=== PATIENT | female | born 1955 | race Caucasian/White ===

== ENCOUNTER → 2016-08-12 | Outpatient (CLI) | payer OTHER | LOC: RAD 08:54 | DX: Z12.31 Encounter for screening mammogram for malignant neoplasm of breast (principal) ==

== ENCOUNTER → 2017-08-16 | Outpatient (CLI) | payer OTHER ==
[~2017-08-16] MED LIST: MULTIVITAMINS1 EAC7 PO; TRAMADOL 50 MG50 MG PO
== END ==
LOC: RAD 01:04
DX: Z12.31 Encounter for screening mammogram for malignant neoplasm of breast (principal)

== ENCOUNTER 2018-01-14 05:30 | Observation (INO) | payer OTHER ==
[2018-01-14] VITALS (8 sets, daily range): BP systolic 88–128; BP diastolic 36–55
[~2018-01-14] VITALS: Ht 167.6 cm; Wt 65.3 kg
--- NOTE | ~2018-01-14 | PATH ---
[facility] [address] PATHOLOGY RPT PROCEDURE Name: SOUMYA STRATTON Room #: 421-P [facility] Juan Carlos VazquezRSantana#: [id number] Admission: 01/14/18 Date of : 55 Discharge: 01/15/18 Report #: [id number] Path Case #: [id number] [facility] Accession Number: [id number] . 01 Material submitted: . LUMBAR 5 DISC . 01 Clinical history: . L4, S1 lateral disc herniation, foraminal stenosis . 02 Diagnosis: "Lumbar 5 disc", discectomy: - Intervertebral disc material with mild reactive and degenerative changes. (CLW:soraya; 01/17/2018) QMS/01/17/2018 . 02 Electronically signed: . Meena Gregory MD, Pathologist NPI- [id number] . 01 Gross description: . The specimen is received in formalin, labeled "McCunniff, Soumya, lumbar 5 disc" and consists of multiple fragments of see-pink soft tissue and calcified tissue measuring 3.6 x 1.5 x 0.3 cm in aggregate. A software sales representative portion is submitted in A1 following decalcification. (SDY; 01/14/2018) SYU/SYU . 02 Pathologist provided ICD-10: M51.36 . 02 CPT . 035912, [id number] Performed at: [address], [place] [id number] MD Jovan Simmons MD Phone: [phone] Performed at: [address] [id number] MD Fabby Cortes MD Phone: [phone]
--- NOTE | ~2018-01-14 | O ---
[facility] [place] [address] OPERATIVE REPORT Name: SOUMYA STRATTON Room #: 421-P [facility] Jesse#: [id number] Admission: 01/14/18 Attend Phys: Usman Graves MD Discharge: 01/15/18 Date of : 55 Report #: [id number] THIS REPORT FOR: //name// CC: Usman Crockett DATE OF SERVICE: 01/14/2018 PREOPERATIVE DIAGNOSIS: Herniated lumbar disk and foraminal stenosis with radiculopathy, L5-S1 level, left. POSTOPERATIVE DIAGNOSIS: Herniated lumbar disk and foraminal stenosis with radiculopathy, L5-S1 level, left. PROCEDURE: Decompressive laminectomy, foraminotomy, and diskectomy, L5-S1, left. SURGEON: Usman Graves MD INDICATIONS: This slender, fit, active 62-year-old female complains of chronic persistent pain in the left low back, extending to the left buttock and left leg. Clinical exam and MRI study reveals some multilevel degenerative disk changes. There is mild disk bulging at L3-L4 and L4-L5, but these are more central and toward the right side. Her symptoms are almost exclusively on the left and seemed to correspond more with a far lateral disk herniation at L5-S1 which causes some foraminal narrowing and nerve root impingement. She has tried conservative measures without benefit. We have discussed that she does have multilevel degenerative disk change and therefore may have some ongoing back symptoms. I am hopeful that her radicular symptoms will be improved with decompression of this localized foraminal stenosis. DESCRIPTION OF PROCEDURE: The patient was taken to the operating room where she was placed under general anesthesia. Prophylactic intravenous antibiotics were administered. She was turned to the prone position. The low back was meticulously prepped and draped. C-arm was used to localize the appropriate level and the L5-S1 level was marked. A skin incision was made just to the left of midline, overlying the L5-S1 space. The incision was carried through fascia and the paraspinal muscles were retracted laterally, exposing the lamina of L5 and S1. A marker was placed and C-arm was used to confirm that I was at the appropriate level. A laminotomy was performed in the inferior aspect of L5 and the superior aspect of S1. The canal did seem moderately tight, making dissection somewhat difficult. There was some significant hypertrophy of the facet joint with a moderate amount of spurring. There also seemed to be a small synovial cyst, which was punctured and removed. This combined to result in moderate canal and foraminal narrowing at that level. The facet was undercut out laterally to improve the lateral gutter. The dissection was extended [address] [address] OPERATIVE REPORT Name: SOUMYA STRATTON Room #: 421-P [facility] Juan Carlos Molina#: [id number] Admission: 01/14/18 Attend Phys: Usman Graves MD Discharge: 01/15/18 Date of : 55 Report #: [id number] distally and the S1 nerve root was noted to be freed up nicely as it passed distally. The principal area of narrowing seemed to be related to the moderately far lateral disk herniation which caused significant foraminal narrowing and probably impingement on the exiting L5 nerve root above. The disk was entered with a small pituitary and a good deal of loose degenerative disk debris was removed. This seemed to decompress the mid and left lateral disk herniation in a satisfactory fashion. There was still some firm fibrous annular bulging, but this was clearly improved. In addition, once a better exposure had been established, I could further resect bone to create a more aggressive foraminotomy. This seemed to open up this area nicely and seemed to reduce any compression on both the L5 and S1 nerve roots. There was moderate hypervascularity in the epidural space and a moderate amount of time was spent simply compressing these small vessels to result in coagulation and good hemostasis. Once this had been established, the wound was further copiously irrigated and inspected for several minutes to assure no further bleeding would occur. The dura and nerve root were intact and there was no evidence of dural tear or spinal fluid leak. At this point, 40 mg of Depo-Medrol were left in the epidural space. The laminotomy was covered with a small sheet of Gelfoam, soaked in thrombin. The fascia was then closed with multiple 0 Vicryl sutures. The subcutaneous tissues were closed with 2-0 Monocryl. The skin was closed with running 2-0 Prolene, supplemented with Steri-Strips. Sterile dressing was applied. The patient was awakened and returned to recovery room in good condition. <ELECTRONICALLY SIGNED> By: Usman Graves MD 01/17/18 [id number] [id number] Usman Graves MD /nt
[2018-01-15 04:11] VITALS: BP 124/55
[2018-01-15 08:00] VITALS: BP 124/55
[2018-01-15 08:40] VITALS: BP 124/55
[2018-01-15 10:31] VITALS: BP 124/55
[2018-01-15 10:33] VITALS: BP 124/55
== END 2018-01-15 10:50 | disposition home or self-care (01) ==
LOC: TBA 05:30 → OR 05:30 → TBA 05:31 → OR 09:07 → 4N 09:34 → OR 09:47 → 4E 17:23
DX: M51.06 Intervertebral disc disorders with myelopathy, lumbar region (principal); M48.00 Spinal stenosis, site unspecified; M54.12 Radiculopathy, cervical region; M19.90 Unspecified osteoarthritis, unspecified site; Z90.89 Acquired absence of other organs
CPT/HCPCS: 50010; 50101; 50402; 50704; 50850; 56525; 62110; 62900; 70005

== ENCOUNTER → 2018-08-23 | Outpatient (CLI) | payer OTHER | LOC: RAD 01:05 | DX: Z12.31 Encounter for screening mammogram for malignant neoplasm of breast (principal) ==

== ENCOUNTER 2019-02-10 05:26 | Day surgery (SDC) | payer OTHER ==
[~2019-02-10] VITALS: Ht 167.6 cm; Wt 67.6 kg
[~2019-02-10 05:26] MED LIST changes: +NEURONTIN 300300 M1 PO
[2019-02-10 07:29] VITALS: BP 120/50
[2019-02-10 10:50] VITALS: BP 120/50
--- NOTE | 2019-02-13 10:29 | O ---
[facility] [place] [address] OPERATIVE REPORT Name: SOUMYA STRATTON Room #: DEP [facility].#: [id number] Admission: 02/10/19 ������������������ Attend Phys: Usman Graves MD Discharge: 02/10/19 ������������������ Date of : 55 Report #: [id number] THIS REPORT FOR: //name// CC: Usman Crockett DATE OF SERVICE: 02/10/2019 PREOPERATIVE DIAGNOSIS: Herniated lumbar disk and foraminal stenosis with radiculopathy, left L5-S1 level. POSTOPERATIVE DIAGNOSIS: Herniated lumbar disk and foraminal stenosis with radiculopathy, left L5-S1 level. PROCEDURE: Decompressive laminectomy and diskectomy, L5-S1, left. SURGEON: Usman Graves MD INDICATIONS: This 63-year-old female underwent decompressive laminectomy at 2 levels about 1 year ago. She had significant improvement in symptoms at that time, but since then has had some recurrent symptoms involving left leg pain. Her current clinical and radiographic findings suggest that she still has significant nerve impingement at L5-S1 toward the left side. In review of her previous surgery and images, I think the previous decompression was more at the L4-L5 level and the L5-S1 level was not fully decompressed at that time while both levels were involved. I think the L5-S1 level is significant and I believe there is foraminal narrowing related to disk bulge and facet hypertrophy. Given this, we have elected to go ahead with revision surgery to re-explore the L5-S1 level and decompress as appropriate. DESCRIPTION OF PROCEDURE: The patient was taken to the operating room where she was placed under general anesthesia. Prophylactic intravenous antibiotics were administered. The patient was placed in the prone position. The low back was meticulously prepped and draped. A skin incision was made through her old surgical scar at the L5-S1 level slightly toward the left of midline. This was carried through subcutaneous tissues and fascia and scar exposing the lamina of L5. The level was confirmed with C-arm views. A more aggressive and complete laminectomy of the left L5 level was performed. This was extending out to the facet joint, which was undercut to allow better visualization of the lateral gutter. This was extended proximally up through the L4 lamina. There was more scarred adhesions here making exploration difficult. The canal was rather tight at the L5-S1 level as a result of some disk bulging. This seemed to be out far laterally and with lateral dissection, a small fragment of extruded disk was identified and removed. The exit point from the annulus was small and there was not a lot of additional disk debris, which could be evacuated. The disk was entered and x-rays confirmed I was at the L5-S1 disk space, which I believe is [address] [address] OPERATIVE REPORT Name: SOUMYA STRATTON Room #: DEP [facility].#: [id number] Admission: 02/10/19 ������������������ Attend Phys: Usman Graves MD Discharge: 02/10/19 ������������������ Date of : 55 Report #: [id number] the space lower than the previous surgery 1 year ago, which I think was actually at the L4-L5 level. The L5-S1 disk is rather firm and fibrotic and no further decompression was accomplished even after entering the disk aggressively with pituitary rongeurs and removing loose degenerative disk debris. The lateral gutter was further opened with debridement of the undersurface of the facet joint. The S1 nerve root was found to be slightly erythematous consistent with some chronic irritation. No other abnormalities were identified. The canal was gently explored distally and proximally and no further areas of significant impingement were identified. The wound was gently packed with thrombin and Gelfoam until good hemostasis was confirmed. A small sheet of Gelfoam was left over the exposed dura. A 40 mg of Depo-Medrol were left in the epidural space around the S1 nerve root. The fascia and muscle layer were then closed with multiple #1 Vicryl sutures. The subcutaneous tissues were closed with 2-0 Monocryl. The skin was closed with 2-0 Prolene supplemented with Steri-Strips. A sterile dressing was applied. The patient was awakened and returned to recovery room in good condition. ��������������������������������������������� <ELECTRONICALLY SIGNED> ���������������������������������������� By: Usman Graves MD ��������������������������������������������� 02/13/19 1029 [id number] Usman Graves MD /nt
== END 2019-02-10 11:54 | disposition home or self-care (01) ==
LOC: OR 05:26 → TBA 05:26 → OR 11:54
DX: M51.17 Intervertebral disc disorders with radiculopathy, lumbosacral region (principal); M48.061 Spinal stenosis, lumbar region without neurogenic claudication; Z85.828 Personal history of other malignant neoplasm of skin; Z98.890 Other specified postprocedural states; Z79.899 Other long term (current) drug therapy
CPT/HCPCS: 50010; 50101; 50402; 50704; 50850; 56525; 62110; 62900; 70005

== ENCOUNTER → 2019-08-31 | Outpatient (CLI) | payer OTHER | LOC: RAD 09:05 | DX: Z12.31 Encounter for screening mammogram for malignant neoplasm of breast (principal) ==

== ENCOUNTER → 2020-09-12 | Outpatient (CLI) | payer OTHER | LOC: BC 09:01 | PROVIDERS: ATTEND Obstetrics & Gynecology | DX: Z12.31 Encounter for screening mammogram for malignant neoplasm of breast (principal) ==